=== PATIENT | female | born 1955 | race Two or more races ===

== ENCOUNTER 2020-04-16 04:20 | Day surgery (SDC) | payer OTHER ==
[2020-04-15 17:47] LABS: COVID AG,FIA SOURCE NASOPHARYNGEAL
[~2020-04-16] VITALS: Ht 167.6 cm; Wt 89.0 kg
[2020-04-16] MEDS ORDERED: LIDOCAINE/PF 1% 2 ML VIAL IM ONE (04:21)
[2020-04-16] MEDS ORDERED: PrednisoLONE ACETATE 1% 5 ML OPHTHALMIC SUSPENSION OU ONE (04:21)
[2020-04-16] MEDS ORDERED: NEOMYCIN/POLYMYXIN B/DEXAMETH 3.5 GM OPHTHALMIC OINTMENT OU ONE (04:21)
[2020-04-16] MEDS ORDERED: HYALURONATE SODIUM 12 MG/ML 0.8 ML SYRINGE IO ONE (04:21)
[2020-04-16] MEDS ORDERED: EPINEPHrine 1:1,000 [1 MG/ML] AMP IM ONE (04:21)
[2020-04-16] MEDS ORDERED: POVIDONE-IODINE 10% 15 ML SOLUTION UD TP ONE (04:21)
[2020-04-16] MEDS ORDERED: RINGERS SOLUTION,LACTATED 500 ML IV ONE ×2 (04:30→04:39)
[2020-04-16] MEDS ORDERED: TROPICAMIDE 1% 2 ML OPHTHALMIC SOLUTION ONE (04:39)
[2020-04-16] MEDS ORDERED: CYCLOPENTOLATE HCL 1% 2 ML OPHTHALMIC SOLUTION ONE (04:39)
[2020-04-16] MEDS ORDERED: MOXIFLOXACIN HCL 0.5% 3 ML OPHTHALMIC SOLUTION ONE (04:39)
[2020-04-16] MEDS ORDERED: PHENYLEPHRINE HCL 2.5% 2 ML OPHTHALMIC SOLUTION ONE (04:39)
[2020-04-16] MEDS ORDERED: TETRACAINE HCL/PF 0.5% 4 ML OPHTHALMIC SOLUTION ONE (04:39)
[2020-04-16] MEDS ORDERED: KETOROLAC TROMETHAMINE 0.5% 5 ML OPHTHALMIC SOLUTION ONE (04:40)
[2020-04-16 05:30] LABS: GLUCOMETER DEV NAME(LOC) SDS.; GLUCOSE,POINT OF CARE 162 MG/DL (70-110)
[2020-04-16] MEDS ORDERED: METF-960 PO (05:37)
[2020-04-16] MEDS ORDERED: SITA50 PO (05:37)
[2020-04-16] MEDS ORDERED: PRAV20TA4 PO (05:37)
[2020-04-16] MEDS ORDERED: LISI-662 PO (05:37)
[2020-04-16] MEDS ORDERED: CHOL125C2 PO (05:37)
[2020-04-16] MEDS ORDERED: OXYB5XL PO (05:37)
[2020-04-16] MEDS ORDERED: HYDR-3831 PO (05:37)
[2020-04-16] MEDS ORDERED: TETRACAINE HCL/PF 0.5% 4 ML OPHTHALMIC SOLUTION OS ONE (06:15)
[2020-04-16] MEDS: MOXIFLOXACIN HCL 0.5% 3 ML OPHTHALMIC SOLUTION OS SCH ×3 (07:06→07:38)
[2020-04-16] MEDS: PHENYLEPHRINE HCL 2.5% 2 ML OPHTHALMIC SOLUTION OS SCH ×3 (07:06→07:38)
[2020-04-16] MEDS: CYCLOPENTOLATE HCL 1% 2 ML OPHTHALMIC SOLUTION OS SCH ×3 (07:06→07:38)
[2020-04-16] MEDS: KETOROLAC TROMETHAMINE 0.5% 5 ML OPHTHALMIC SOLUTION OS SCH ×3 (07:07→07:38)
[2020-04-16] MEDS: TROPICAMIDE 1% 2 ML OPHTHALMIC SOLUTION OS SCH ×3 (07:07→07:38)
[2020-04-16] MEDS ORDERED: MIDAZOLAM HCL 2 MG/2 ML VIAL IVP ONE (12:00)
[2020-04-16] MEDS ORDERED: FentaNYL CITRATE-PF 100 MCG/2 ML VIAL IVP ONE (12:00)
== END 2020-04-16 08:10 | disposition home or self-care (01) ==
LOC: SURGERY 04:20
PROVIDERS: ATTEND Ophthalmology
DX: E11.36 Type 2 diabetes mellitus with diabetic cataract (principal); H25.11 Age-related nuclear cataract, right eye; I10 Essential (primary) hypertension; E78.00 Pure hypercholesterolemia, unspecified; Z88.0 Allergy status to penicillin
CPT/HCPCS: 66984; 82962; 87426; 93005; J0171; J2250; J3010; J3490 ×2; J7120; V2632

== ENCOUNTER 2020-05-29 05:09 | Day surgery (SDC) | payer OTHER ==
[2020-05-28 12:54] LABS: COVID AG,FIA SOURCE NASOPHARYNGEAL
[~2020-05-29] VITALS: Ht 165.1 cm; Wt 91.0 kg
[~2020-05-29 05:09] MED LIST: CHOL125C2 PO; HYDR-3831 PO; LISI-662 PO; METF-960 PO; OXYB5XL PO; PRAV20TA4 PO; SITA50 PO
[2020-05-29] MEDS ORDERED: CYCLOPENTOLATE HCL 1% 2 ML OPHTHALMIC SOLUTION ONE (05:16)
[2020-05-29] MEDS ORDERED: TETRACAINE HCL/PF 0.5% 4 ML OPHTHALMIC SOLUTION ONE (05:16)
[2020-05-29] MEDS ORDERED: TROPICAMIDE 1% 2 ML OPHTHALMIC SOLUTION ONE (05:16)
[2020-05-29] MEDS ORDERED: RINGERS SOLUTION,LACTATED 500 ML IV ONE ×2 (05:16→05:30)
[2020-05-29] MEDS ORDERED: MOXIFLOXACIN HCL 0.5% 3 ML OPHTHALMIC SOLUTION ONE (05:16)
[2020-05-29] MEDS ORDERED: KETOROLAC TROMETHAMINE 0.5% 5 ML OPHTHALMIC SOLUTION ONE (05:16)
[2020-05-29] MEDS ORDERED: PHENYLEPHRINE HCL 2.5% 2 ML OPHTHALMIC SOLUTION ONE (05:16)
[2020-05-29] MEDS: PHENYLEPHRINE HCL 2.5% 2 ML OPHTHALMIC SOLUTION OD SCH ×3 (05:53→06:12)
[2020-05-29] MEDS: CYCLOPENTOLATE HCL 1% 2 ML OPHTHALMIC SOLUTION OD SCH ×3 (05:53→06:12)
[2020-05-29] MEDS: TROPICAMIDE 1% 2 ML OPHTHALMIC SOLUTION OD SCH ×3 (05:54→06:13)
[2020-05-29] MEDS: KETOROLAC TROMETHAMINE 0.5% 5 ML OPHTHALMIC SOLUTION OD SCH ×3 (05:54→06:12)
[2020-05-29] MEDS: MOXIFLOXACIN HCL 0.5% 3 ML OPHTHALMIC SOLUTION OD SCH ×3 (05:54→06:13)
[2020-05-29 06:03] LABS: GLUCOMETER DEV NAME(LOC) SDS.; GLUCOSE,POINT OF CARE 140 MG/DL (70-110)
[2020-05-29] MEDS ORDERED: TETRACAINE HCL/PF 0.5% 4 ML OPHTHALMIC SOLUTION OD ONE (06:30)
[2020-05-29] MEDS ORDERED: GABA-1216 PO (06:33)
[2020-05-29] MEDS ORDERED: XALA2.5OS OU (06:33)
[2020-05-29] MEDS ORDERED: NAPR-1193 PO (06:33)
[2020-05-29] MEDS ORDERED: GLIM2 PO (06:33)
[2020-05-29] MEDS ORDERED: HYDROmorphone 2 MG/ML SYRINGE IVP PRN (07:15)
[2020-05-29] MEDS ORDERED: MEPERIDINE-PF 25 MG/ML VIAL IVP PRN (07:15)
[2020-05-29] MEDS ORDERED: FentaNYL CITRATE-PF 100 MCG/2 ML VIAL IVP PRN (07:15)
[2020-05-29] MEDS ORDERED: OXYGEN THERAPY IH SCH (08:00)
[2020-05-29] MEDS ORDERED: POVIDONE-IODINE 10% 15 ML SOLUTION UD TP ONE (12:00)
[2020-05-29] MEDS ORDERED: PrednisoLONE ACETATE 1% 5 ML OPHTHALMIC SUSPENSION OD ONE (12:00)
[2020-05-29] MEDS ORDERED: BALANCED SALT 15 ML OPHTHALMIC IRRIG.SOLN OD ONE (12:00)
[2020-05-29] MEDS ORDERED: MIDAZOLAM HCL 2 MG/2 ML VIAL IVP ONE (12:00)
[2020-05-29] MEDS ORDERED: HYALURONATE SODIUM 12 MG/ML 0.8 ML SYRINGE IO ONE (12:00)
[2020-05-29] MEDS ORDERED: LIDOCAINE/PF 1% 2 ML VIAL INJ ONE (12:00)
[2020-05-29] MEDS ORDERED: NEOMYCIN/POLYMYXIN B/DEXAMETH 3.5 GM OPHTHALMIC OINTMENT OD ONE (12:00)
[2020-05-29] MEDS ORDERED: EPINEPHrine 1:1,000 [1 MG/ML] AMP SQ ONE (12:00)
[2020-05-29] MEDS ORDERED: FentaNYL CITRATE-PF 100 MCG/2 ML VIAL IVP ONE (12:00)
== END 2020-05-29 08:25 | disposition home or self-care (01) ==
LOC: SURGERY 05:09
PROVIDERS: ATTEND Ophthalmology
DX: H25.11 Age-related nuclear cataract, right eye (principal); I10 Essential (primary) hypertension; E11.36 Type 2 diabetes mellitus with diabetic cataract; E78.00 Pure hypercholesterolemia, unspecified; Z88.0 Allergy status to penicillin; Z88.8 Allergy status to other drugs, medicaments and biological substances; Z91.013 Allergy to seafood; Z20.828 Contact with and (suspected) exposure to other viral communicable diseases
CPT/HCPCS: 66984; 82962; 87426; C9803; J0171; J2250; J3010; J3490 ×2; J7120; V2632